=== PATIENT | male | born 1955 | race Caucasian/White ===

== ENCOUNTER 2019-11-05 12:00 | Observation (INO) | payer MEDICARE, OTHER ==
[~2019-11-05] VITALS: Ht 177.8 cm; Wt 88.5 kg
[2019-11-05 12:40] LABS: BASO # 0.1 (0.0-0.2); BASO % 0.6 % (0.0-2.0); EOS # 0.1 (0.0-0.7); EOS % 1.1 % (0-4.0); GRAN # 4.2 (1.4-6.5); GRAN % 51.8 % (42.2-75.2); HEMOGLOBIN 11.6 g/dl (13.5-18.0); LYMPH # 2.9 (1.2-3.4); LYMPH % 35.6 % (20.0-51.0); MEAN CELL VOLUME 84 fl (80.0-100.0); MEAN CORPUSCULAR HEMOGLOBIN 28 pg (27.0-31.0); MEAN CORPUSCULAR HGB CONC 33 g/dl (33.0-37.0); MEAN PLATELET VOLUME 9.5 fl (7.4-10.4); MONO # 0.8 (0.1-0.6); MONO % 10.4 % (1.7-9.3); PLATELET COUNT 213 K/mm3 (130-400); RED BLOOD COUNT 4.17 M/mm3 (4.20-5.60); REDCELL DISTRIBUTION WIDTH-CV 12.8 % (11.5-14.5)
[2019-11-05 12:43] LABS: HEMATOCRIT 35.2 % (42.0-52.0); PROTHROMBIN TIME 11.5 SECONDS (9.7-12.8)
[2019-11-05 12:46] LABS: PARTIAL THROMBOPLASTIN TIME 22.9 SECONDS (26.0-37.0)
[2019-11-05 12:55] LABS: ALANINE AMINOTRANSFERASE 30 U/L (21-72); ALBUMIN 3.9 gm/dL (3.5-5.0); ALKALINE PHOSPHATASE 91 U/L (50-136); ANION GAP 13 mmol/L (7-16); AST,SGOT 41 U/L (15-37); BILIRUBIN,TOTAL 0.7 mg/dL (0.0-1.0); BLOOD UREA NITROGEN 14 mg/dL (9-20); CALCIUM 8.7 mg/dL (8.4-10.2); CARBON DIOXIDE 19 mmol/L (22-30); CHLORIDE 103 mmol/L (98-107); CREATININE, serum 0.79 (0.66-1.25); GLUCOSE 119 mg/dL (74-106); LIPASE 63 U/L (23-300); MAGNESIUM 1.8 mg/dL (1.6-2.3); PHOSPHOROUS 3.1 mg/dL (2.5-4.5); POTASSIUM 3.8 mmol/L (3.4-5.0); SODIUM 135 mmol/L (137-145); TOTAL PROTEIN 6.4 gm/dL (6.4-8.2)
[2019-11-05 13:19] LABS: TROPONIN-I < 0.012 ng/mL (0.000-0.035)
[2019-11-05 14:18] LABS: COLLECTION METHOD CLEAN CATCH
[2019-11-05 14:24] LABS: PH 7 (5-8); SQUAMOUS EPITHELIAL None Seen /hpf; URINE APPEARANCE Clear; URINE BACTERIA None Seen /hpf; URINE BILIRUBIN Negative (NEGATIVE); URINE BLOOD Negative (NEGATIVE); URINE COLOR Yellow; URINE GLUCOSE Negative (NEGATIVE); URINE KETONE 1+ (NEGATIVE); URINE LEUKOCYTE ESTERASE Negative (NEGATIVE); URINE NITRATE Negative (NEGATIVE); URINE PROTEIN(semi-quant) Negative (NEGATIVE); URINE RBC 0-2 /hpf; URINE UROBILINOGEN Negative (NEGATIVE)
[2019-11-05] MEDS ORDERED: IMDUR 30MG30 MG/TAB PO (15:00)
[2019-11-05] MEDS ORDERED: ZEBETA 5MG5 MG PO (15:00)
[2019-11-05] MEDS ORDERED: LIPITOR 80MG80 MG PO (15:01)
[2019-11-05] MEDS ORDERED: UBIQUINOL100 MG PO (15:01)
[2019-11-05] MEDS ORDERED: ASPIRIN 81M81 MG/TA2 PO (15:01)
[2019-11-05] MEDS ORDERED: FISH OIL1000 MG PO (15:02)
[2019-11-05] MEDS ORDERED: GLUCOSAMINE & C1 CA2 PO (15:03)
[2019-11-05] MEDS ORDERED: COZAAR 50MG50 MG/TAB PO (15:54)
[2019-11-05 17:00] VITALS: BP 113/72; PULSE 14; TEMP 97.7
[2019-11-05 19:42] VITALS: BP 117/64; PULSE 77; TEMP 98
--- NOTE | 2019-11-05 20:15 | NUR ---
Shift assessment complete. Pt resting in bed, awake, a&o, cooperative c cares. Pt denies pain or any other c/o. IV patent. Tele in place. Pt denies further needs. Call light in reach, will continue to monitor.
[2019-11-05 23:24] VITALS: BP 101/59; PULSE 85; TEMP 98
[2019-11-06] VITALS (9 sets, daily range): BP systolic 108–138; BP diastolic 65–77; PULSE 65–91; TEMP 97.8–98.3
[2019-11-06 06:36] LABS: BASO % 0.3 % (0.0-2.0); EOS # 0.1 (0.0-0.7); EOS % 1.1 % (0-4.0); GRAN # 4.5 (1.4-6.5); GRAN % 69.4 % (42.2-75.2); HEMOGLOBIN 10.6 g/dl (13.5-18.0); LYMPH # 1.4 (1.2-3.4); LYMPH % 22.1 % (20.0-51.0); MEAN CELL VOLUME 85 fl (80.0-100.0); MEAN CORPUSCULAR HEMOGLOBIN 28 pg (27.0-31.0); MEAN CORPUSCULAR HGB CONC 33 g/dl (33.0-37.0); MEAN PLATELET VOLUME 9.5 fl (7.4-10.4); MONO # 0.4 (0.1-0.6); MONO % 6.8 % (1.7-9.3); PLATELET COUNT 161 K/mm3 (130-400); RED BLOOD COUNT 3.74 M/mm3 (4.20-5.60)
[2019-11-06 06:47] LABS: HEMATOCRIT 31.8 % (42.0-52.0)
[2019-11-06 06:59] LABS: CALCIUM 8.1 mg/dL (8.4-10.2); CHOLESTEROL RISK RATIO 3.5; CREATININE, serum 0.86 (0.66-1.25)
[2019-11-06 07:18] LABS: TSH w REFLEX 1.03 uIU/mL (0.465-4.680)
--- NOTE | 2019-11-06 09:33 | NUR ---
Pt down for lexiscan at this time.
--- NOTE | 2019-11-06 09:42 | NUR ---
Pt assessment completed and charted. Pt sitting in bed with at bedside. Pt denies chest pain, dizziness, SOB, N/V/D. Pt is A&O, independent in room. Pt on room air and tele. Breathing is even and unlabored. Pt denies any other concerns at this time. NS running to RAC IV at 75ml/hr. LAC INT IV flushes w/o complications.
--- NOTE | 2019-11-06 12:22 | NUR ---
Tele called about pt "looking like he was in Vfib". Checked on pt, he is sitting in bed, at bedside, A&O, denies chest pain, dizziness, SOB, nausea. "just hungry and want some coffee" states patient. New lead stickers placed, checked with tele, appears better on monitor.
--- NOTE | 2019-11-06 15:07 | NUR ---
Pt discharging home. Discharge instructions discussed and reviewed w/ patient and who verbalize understanding. All questions answered. LAC and RW INT IV's dc'd w/ catheter tips intact and no complications. No further needs expressed. Pt escorted out via WC by SIRENA Mohan.
== END 2019-11-06 15:08 | disposition home or self-care (01) ==
LOC: COL.ER 12:00 → MEDICAL 14:39
PROVIDERS: Emergency Medicine; ADMIT Hospitalist
DX: R55 Syncope and collapse (principal); I25.10 Atherosclerotic heart disease of native coronary artery without angina pectoris; I10 Essential (primary) hypertension; E78.5 Hyperlipidemia, unspecified; F10.20 Alcohol dependence, uncomplicated; Z79.82 Long term (current) use of aspirin; Z87.891 Personal history of nicotine dependence; Z88.0 Allergy status to penicillin
CPT/HCPCS: A9500; G0378; J1650; J2405; J2550; J7030; Q9967

== ENCOUNTER 2022-07-20 13:35 | Inpatient (IN) | payer MEDICARE, OTHER ==
[~2022-07-20] VITALS: Ht 177.8 cm; Wt 78.8 kg
[~2022-07-20 13:35] MED LIST: ASPIRIN 81M81 MG/TA2 PO; COZAAR 50MG50 MG/TAB PO; FISH OIL1000 MG PO; GLUCOSAMINE & C1 CA2 PO; IMDUR 30MG30 MG/TAB PO; LIPITOR 80MG80 MG PO; PACERONE400 MG PO; UBIQUINOL100 MG PO; ZEBETA 5MG5 MG PO
[2022-07-20 14:27] LABS: BASO # 0.1 K/mm3 (0.0-0.2); BASO % 0.4 % (0.0-2.0); EOS # 0.1 K/mm3 (0.0-0.7); GRAN # 9.4 K/mm3 (1.4-6.5); GRAN % 83.8 % (42.2-75.2); LYMPH # 0.9 K/mm3 (1.2-3.4); LYMPH % 7.7 % (20.0-51.0); MEAN CELL VOLUME 91 fl (80.0-100.0); MEAN CORPUSCULAR HGB CONC 34 g/dl (33.0-37.0); MEAN PLATELET VOLUME 10.4 fl (7.4-10.4); MONO # 0.7 K/mm3 (0.1-0.6); MONO % 6.6 % (1.7-9.3); PLATELET COUNT 73 K/mm3 (130-400); RED BLOOD COUNT 3.15 M/mm3 (4.20-5.60); REDCELL DISTRIBUTION WIDTH-CV 13.8 % (11.5-14.5)
[2022-07-20 14:28] LABS: HEMATOCRIT 28.8 % (42.0-52.0); HEMOGLOBIN 9.9 g/dl (13.5-18.0); MEAN CORPUSCULAR HEMOGLOBIN 31 pg (27-31)
[2022-07-20 14:44] LABS: ALBUMIN 3.2 gm/dL (3.4-4.8); BILIRUBIN,TOTAL 0.5 mg/dL (0.2-1.2); CALCIUM 8.5 mg/dL (8.4-10.2); CREATININE, serum 0.83 mg/dL (0.72-1.25); POTASSIUM 4.3 mmol/L (3.5-4.5); TOTAL PROTEIN 6.1 gm/dL (6.2-8.1)
[2022-07-20 14:52] LABS: TROPONIN-I 8.848 ng/mL (0.00-0.033)
[2022-07-20 16:43] LABS: PARTIAL THROMBOPLASTIN TIME 29.8 SECONDS (26.0-37.0)
[2022-07-20] MEDS ORDERED: FIBERCON PO (16:50)
[2022-07-20] MEDS ORDERED: VITAMIN D31000 IU PO (16:51)
[2022-07-20] MEDS ORDERED: COLACE 100100 MG/CAP PO (16:51)
[2022-07-20] MEDS ORDERED: NORCO 325 MG-51 TAB PO (16:52)
[2022-07-20 18:30] VITALS: BP 116/80; PULSE 70; TEMP 98.4
--- NOTE | 2022-07-20 18:46 | NUR ---
PT ADMITTED FROM ED AT 1806. PT BROUGHT OVER ON ED STRETCHER BUT IS ABLE TO STAND TO TRANSFER TO ICU BED. HEPARIN INFUSION RUNNING AT 15ML/HR TO 20G IV IN R AC ORDERED. PT HAS MIDLINE INCISION TO CHEST FROM RECENT CABG, EDGES ARE WELL APPROXIMATED, NO DRAINAGE NOTED, INCISION IS BECKA. SMALL INCISION TO UPPER MIDDLE ABD FROM DRAIN SITES R/T CABG. INCISION IS COVERED W/ GAUZE, SMALL AMOUNT OF DRAINAGE NOTED. TWO SMALL INCISIONS NOTED TO LEFT LEG FROM VEIN GRAFT SITE, EDGES APPROXIMATED AND COVERED W/ STERI STRIPS. LARGE BRUISED AREA PRESENT TO LEFT INNER KNEE/THIGH AREA ALSO R/T SURGERY. PT IS ALERT AND ORIENTED, USES CALL LIGHT FOR NEEDS. PT IS WEARING GLASSES AND WEDDING RING AND HAS PANTS, SHIRT, SOCKS, ARMEN HOSE, SLIPPERS, AND CELL PHONE IN ROOM. TO TAKE WALLET HOME.
[2022-07-20 20:00] VITALS: BP 119/75; PULSE 78; TEMP 98.2
--- NOTE | 2022-07-20 20:00 | NUR ---
SHIFT REPORT RECEIVED. PT A&O. PT WITTH MID STERNAL INCISION WELL APPROXIMATED. MID UPPER ABD X3 INCISIONS 1 CM IN LENGTH FROM DRAINS. 2 INCISIONS SCABED AND HEALED, 1 INCISION WITH SCANT DRAINAGE. LT LEG INNER KNEE INCISION WITH STERISTRIP IN PLACE. BRUISING AT AND ABOVE INCISION SITE. TEDHOSE KNEE HIGH IN PLACE. MILD SWELLING IN LT ANKLE. C/O ACHY PAIN BL ARMS TRICEPT AREA TO UNDER ARM PECTORIAL AREA. PT REPORTS TAKING TYLENOL AND NITRO FOR THIS DISCOMFORT
[2022-07-21] VITALS (7 sets, daily range): BP systolic 110–143; BP diastolic 69–90; PULSE 66–972; TEMP 97.5–98.7
--- NOTE | 2022-07-21 00:15 | NUR ---
Received report from CHERYL Fletcher.
[2022-07-21 05:05] LABS: BASO % 0.2 % (0.0-2.0); EOS # 0.1 K/mm3 (0.0-0.7); EOS % 0.7 % (0.0-4.0); GRAN # 9.5 K/mm3 (1.4-6.5); GRAN % 86.7 % (42.2-75.2); LYMPH # 0.7 K/mm3 (1.2-3.4); LYMPH % 6.3 % (20.0-51.0); MEAN CELL VOLUME 90 fl (80.0-100.0); MEAN CORPUSCULAR HGB CONC 35 g/dl (33.0-37.0); MEAN PLATELET VOLUME 9.6 fl (7.4-10.4); MONO # 0.6 K/mm3 (0.1-0.6); MONO % 5.4 % (1.7-9.3); RED BLOOD COUNT 2.97 M/mm3 (4.20-5.60); REDCELL DISTRIBUTION WIDTH-CV 13.5 % (11.5-14.5)
[2022-07-21 05:06] LABS: HEMATOCRIT 26.6 % (42.0-52.0); HEMOGLOBIN 9.4 g/dl (13.5-18.0); MEAN CORPUSCULAR HEMOGLOBIN 32 pg (27-31)
[2022-07-21 05:10] LABS: PLATELET COUNT 47 K/mm3 (130-400)
[2022-07-21 05:20] LABS: CALCIUM 8.3 mg/dL (8.4-10.2); CREATININE, serum 0.82 mg/dL (0.72-1.25); MAGNESIUM 2.1 mg/dL (1.6-2.6); PHOSPHOROUS 4.2 mg/dL (2.3-4.7)
[2022-07-21 05:31] LABS: TROPONIN-I 13.248 ng/mL (0.00-0.033)
--- NOTE | 2022-07-21 05:42 | NUR ---
Patient woke around 0200 complaining of 'hot flash,' that left him dizzy, lightheaded, and sweaty. Vitals remained within normal limits. Lung and heart sounds normal to auscultation. BG of 108. Room fan turned on per patient's request. Thomas, hospitalist, notified. No new orders received. Patient continued to voice concern of sudden symtpoms despite reassurance from staff. Patient phoned , Lana, who spoke with this RN. Patient became nauseous and began dry-heaving without emesis around 0330. Thomas notified. Orders received for PRN zofran. EKG and AM labs obtained. Results forwarded to Thomas. No new orders at this time.
--- NOTE | 2022-07-21 10:18 | NUR ---
Initial visit; Patient stated he didn't know what he wanted from Utility Operator. Utility Operator asked if she could keep him in her prayers and he said that would be fine. His asked Utility Operator to call their [employer] which later Utility Operator called and found everyone on vacation but left a message on the answering machine regarding Scotty's hospitalization and Rm. number.
--- NOTE | 2022-07-21 10:38 | NUR ---
SW met with patient to complete intake. Patients Lana ([phone]) is present at bedside. Much of the intake is completed by the patients . Together, they live at home in [place]. Patient recently had a CABG done on 07/08 and since then, his has had to assist him with showering, but he has been able to complete all of his other ADL's on his own. Patient has access to a walker at home, but reports to not needing it. He has no home oxygen needs. PCP is and he utilizes [facility] for prescriptions. Per Lana, patient does have a DPOA-HC established listing her as her agent, but would "have to find it". Patient getting preped to go down and get a CT scan at this time.
[2022-07-21 15:53] LABS: MEAN CELL VOLUME 92 fl (80.0-100.0); MEAN CORPUSCULAR HGB CONC 34 g/dl (33.0-37.0); MEAN PLATELET VOLUME 9.6 fl (7.4-10.4); REDCELL DISTRIBUTION WIDTH-CV 13.9 % (11.5-14.5)
[2022-07-21 15:54] LABS: HEMATOCRIT 28.4 % (42.0-52.0); HEMOGLOBIN 9.7 g/dl (13.5-18.0); MEAN CORPUSCULAR HEMOGLOBIN 31 pg (27-31)
[2022-07-21 15:55] LABS: PLATELET COUNT 48 K/mm3 (130-400)
[2022-07-21 16:22] LABS: EOSINOPHIL 1 % (0-4); LYMPHOCYTE 7 % (20.0-51.0); NEUTROPHILS 88 % (42.0-75.2)
[2022-07-21 16:24] LABS: PLATELET ESTIMATE DECREASED (NORMAL)
[2022-07-22] VITALS: BP 116/77; PULSE 74; TEMP 97.9
[2022-07-22 04:00] VITALS: BP 111/81; PULSE 67; TEMP 98.2
[2022-07-22 06:21] LABS: BASO % 0.3 % (0.0-2.0); EOS # 0.2 K/mm3 (0.0-0.7); EOS % 1.8 % (0.0-4.0); GRAN # 7.7 K/mm3 (1.4-6.5); LYMPH # 0.9 K/mm3 (1.2-3.4); LYMPH % 9.7 % (20.0-51.0); MEAN CELL VOLUME 90 fl (80.0-100.0); MEAN CORPUSCULAR HGB CONC 35 g/dl (33.0-37.0); MEAN PLATELET VOLUME 9.8 fl (7.4-10.4); MONO # 0.5 K/mm3 (0.1-0.6); MONO % 5.7 % (1.7-9.3); PLATELET COUNT 58 K/mm3 (130-400); RED BLOOD COUNT 2.97 M/mm3 (4.20-5.60); REDCELL DISTRIBUTION WIDTH-CV 13.8 % (11.5-14.5)
[2022-07-22 06:28] LABS: HEMATOCRIT 26.6 % (42.0-52.0); HEMOGLOBIN 9.3 g/dl (13.5-18.0); MEAN CORPUSCULAR HEMOGLOBIN 31 pg (27-31)
[2022-07-22 06:36] LABS: ALBUMIN 2.8 gm/dL (3.4-4.8); CALCIUM 8.4 mg/dL (8.4-10.2); CREATININE, serum 0.8 mg/dL (0.72-1.25); MAGNESIUM 2.1 mg/dL (1.6-2.6); PHOSPHOROUS 4.4 mg/dL (2.3-4.7); POTASSIUM 4.1 mmol/L (3.5-4.5)
--- NOTE | 2022-07-22 07:43 | NUR ---
REPORT RECEIVED FROM CHERYL RIVERS; PATIENT CURRENTLY RESTING IN BED, VITAL SIGNS WITHIN NORMAL LIMITS AND NO FLUIDS ARE RUNNING THROUGH HIS PERIPHERAL LINE.
[2022-07-22 08:00] VITALS: BP 115/68; PULSE 72; TEMP 98
--- NOTE | 2022-07-22 10:40 | NUR ---
RE: CARDIAC REHAB - STAFF SAW ON 07/21/22. RECENT CABG. REVIEWED [facility] FOR HEART DISEASE, SCHEDULED FOR INITIAL EVAL FOR CARDIAC REHAB, PENDING FORK TRUCK DRIVER FOLLOW UP POST DISCHARGE FROM CURRENT HOSPITALIZATION. SCHEDULED FOR . APPROX 15 MIN SPEND FACE TO FACE WITH PATIENT.
--- NOTE | 2022-07-22 11:25 | NUR ---
Follow_up visit-Wireworker looked in on patient and his and let them know she located his Dough Braker but had to leave a message. They thanked Wireworker for her efforts and said that their Dough Braker had gotten the message and contacted them last night.
[2022-07-22 12:00] VITALS: BP 90/61; PULSE 67; TEMP 98.2
[2022-07-22 16:00] VITALS: BP 108/72; PULSE 61; TEMP 97.7
[2022-07-22 20:00] VITALS: BP 107/71; PULSE 63; TEMP 98.4
[2022-07-23] VITALS: BP 105/72; PULSE 68; TEMP 97.9
[2022-07-23 04:00] VITALS: BP 116/71; PULSE 67; TEMP 98.3
[2022-07-23 04:41] LABS: BASO # 0.1 K/mm3 (0.0-0.2); BASO % 0.6 % (0.0-2.0); EOS # 0.2 K/mm3 (0.0-0.7); EOS % 2.4 % (0.0-4.0); GRAN # 6.9 K/mm3 (1.4-6.5); LYMPH # 1.1 K/mm3 (1.2-3.4); LYMPH % 12.6 % (20.0-51.0); MEAN CELL VOLUME 89 fl (80.0-100.0); MEAN CORPUSCULAR HGB CONC 35 g/dl (33.0-37.0); MEAN PLATELET VOLUME 9.7 fl (7.4-10.4); MONO # 0.5 K/mm3 (0.1-0.6); MONO % 6.1 % (1.7-9.3); PLATELET COUNT 66 K/mm3 (130-400); RED BLOOD COUNT 3.11 M/mm3 (4.20-5.60)
[2022-07-23 04:42] LABS: HEMATOCRIT 27.8 % (42.0-52.0); HEMOGLOBIN 9.7 g/dl (13.5-18.0); MEAN CORPUSCULAR HEMOGLOBIN 31 pg (27-31)
[2022-07-23 04:57] LABS: ALBUMIN 2.8 gm/dL (3.4-4.8); CALCIUM 8.4 mg/dL (8.4-10.2); CREATININE, serum 0.86 mg/dL (0.72-1.25); MAGNESIUM 2.1 mg/dL (1.6-2.6); PHOSPHOROUS 4.3 mg/dL (2.3-4.7); POTASSIUM 4.2 mmol/L (3.5-4.5)
--- NOTE | 2022-07-23 07:30 | NUR ---
REPORT RECEIVED FROM CHERYL BEJARANO; PATIENT CURRENTLY RESTING IN BED AND VITAL SIGNS ARE WITHIN NORMAL LIMITS. PATIENT HAS NO FLUIDS OR MEDS RUNNING AT THIS TIME.
[2022-07-23 07:49] VITALS: BP 124/71; PULSE 72; TEMP 97.6
[2022-07-23] MEDS ORDERED: ELIQUIS 5MG PO (08:23)
[2022-07-23] MEDS ORDERED: ANTIVERT 12.512.5 MG PO (08:23)
--- NOTE | 2022-07-23 13:20 | NUR ---
PATIENT DISCHARGED TODAY AT 1249; PATIENT WAS IN STABLE CONDITION AND WAS TAKEN OUT VIA WHEELCHAIR ACCOMPANIED BY THIS NURSE AND HIS , JARVIS.
== END 2022-07-23 12:49 | disposition home or self-care (01) | DRG 175 ==
LOC: COL.ER 13:35 → ICU 16:27
PROVIDERS: Emergency Medicine; Internal Medicine Pulmonary Disease; ADMIT Internal Medicine
DX: I26.99 Other pulmonary embolism without acute cor pulmonale (principal); I21.A1 Myocardial infarction type 2; J98.11 Atelectasis; E87.1 Hypo-osmolality and hyponatremia; I82.812 Embolism and thrombosis of superficial veins of left lower extremity; F10.90 Alcohol use, unspecified, uncomplicated; I25.10 Atherosclerotic heart disease of native coronary artery without angina pectoris; I48.91 Unspecified atrial fibrillation; D75.829 Heparin-induced thrombocytopenia, unspecified; I95.9 Hypotension, unspecified; E78.1 Pure hyperglyceridemia; I10 Essential (primary) hypertension; D64.9 Anemia, unspecified; D72.829 Elevated white blood cell count, unspecified; I49.3 Ventricular premature depolarization; E78.5 Hyperlipidemia, unspecified; H81.10 Benign paroxysmal vertigo, unspecified ear; Z90.89 Acquired absence of other organs; Z95.1 Presence of aortocoronary bypass graft; Z88.0 Allergy status to penicillin; Z87.891 Personal history of nicotine dependence; Z88.8 Allergy status to other drugs, medicaments and biological substances; Z23 Encounter for immunization
CPT/HCPCS: C8924; J1644; J2405; J7120; Q9957; Q9967

== ENCOUNTER 2022-10-19 12:08 | Outpatient (RCR) | payer MEDICARE, OTHER ==
[~2022-10-19 12:08] MED LIST changes: +ANTIVERT 12.512.5 MG PO; +COLACE 100100 MG/CAP PO; +ELIQUIS 5MG PO; +FIBERCON PO; +NORCO 325 MG-51 TAB PO; +VITAMIN D31000 IU PO
== END 2022-10-20 | disposition home or self-care (01) ==
LOC: COL.CR
DX: Z48.812 Encounter for surgical aftercare following surgery on the circulatory system (principal); Z95.1 Presence of aortocoronary bypass graft

== ENCOUNTER 2022-11-11 14:58 | Outpatient (RCR) | payer MEDICARE, OTHER | END 2022-11-11 15:00 | disposition home or self-care (01) | LOC: COL.CR 14:58 | DX: Z48.812 Encounter for surgical aftercare following surgery on the circulatory system (principal); Z95.1 Presence of aortocoronary bypass graft; I20.8 Other forms of angina pectoris ==